=== PATIENT | female | born 1975 | race Two or more races ===

== ENCOUNTER → 2019-01-18 | Emergency (ER) | payer OTHER ==
[~2019-01-18] VITALS: Ht 157.5 cm; Wt 99.8 kg
[~2019-01-18] MED LIST: ONDANSETRON ODT4 MG SL; PEDIALYTE1000 ML; PEPCID AC20 MG PO
== END | disposition home or self-care (01) ==
LOC: ER 14:40
DX: K29.70 Gastritis, unspecified, without bleeding (principal)

== ENCOUNTER 2022-01-05 15:32 | Emergency (ER) | payer OTHER ==
[~2022-01-05] VITALS: Ht 162.6 cm; Wt 104.8 kg
[2022-01-05] MEDS ORDERED: MEDROLPACK PO (18:50)
[2022-01-05] MEDS ORDERED: OMEPRAZOLE20 M1 PO (18:51)
== END 2022-01-05 19:51 | disposition home or self-care (01) ==
LOC: ER 15:32
DX: R53.81 Other malaise (principal); R51.9 Headache, unspecified; Z20.822 Contact with and (suspected) exposure to COVID-19

== ENCOUNTER 2025-02-11 12:03 | Outpatient (CLI) | payer OTHER ==
[~2025-02-11 12:03] MED LIST changes: +MEDROLPACK PO; +OMEPRAZOLE20 M1 PO
== END 2025-02-11 12:05 | disposition home or self-care (01) ==
LOC: SONOGRAMA 12:03
DX: F17.210 Nicotine dependence, cigarettes, uncomplicated (principal); J84.10 Pulmonary fibrosis, unspecified; N20.0 Calculus of kidney